=== PATIENT | female | born 1935 | race Caucasian/White ===

== ENCOUNTER 2019-09-21 07:21 | Emergency (ER) | payer MEDICARE, OTHER ==
[~2019-09-21] VITALS: Ht 152.4 cm; Wt 59.0 kg
[~2019-09-21 07:21] MED LIST: AMLO2.5T4 PO; ESCI10TA PO; LEVO125T PO; ROSU5TAB PO; VALS40TA4 PO
[2019-09-21] MEDS ORDERED: IV NS 0.9% 500 ML BAG IV ONE (07:30)
--- NOTE | 2019-09-21 07:35 | NUR ---
TOM RA 89 From Home sycopal episode "Recent increase in BP meds-had syncopal episode this am. Worse w/changing position BS 127". on room air, breathing evenly and unlabored. Connected to the monitor and pulse ox. kept comfortable, will continue to monitor accordingly.
--- NOTE | 2019-09-21 07:51 | NUR ---
CALLED CARDIO [phone]
--- NOTE | 2019-09-21 07:56 | NUR ---
SUBMITTED MOVE SHEET AND CALLED FOR TELE BED
[2019-09-21 07:58] LABS: BASOPHILS # (AUTO) 0.1 /CMM (0.0-0.2); BASOPHILS % (AUTO) 1.2 % (0.0-2.0); EOSINOPHILS % (AUTO) 0.2 % (0.0-6.0); HEMATOCRIT 36 % (33-45); HEMOGLOBIN 11.9 g/dL (11.5-14.8); LYMPHOCYTES # (AUTO) 0.9 /CMM (0.8-4.8); LYMPHOCYTES % (AUTO) 11.8 % (20.0-44.0); MEAN CORPUSCULAR HGB CONC 33 g/dl (31.0-36.0); MEAN CORPUSCULAR VOLUME 94 fL (82-100); MONOCYTES # (AUTO) 0.5 /CMM (0.1-1.30); MONOCYTES % (AUTO) 5.8 % (2.0-12.0); NEUTROPHILS # (AUTO) 6.4 /CMM (1.8-8.9); PLATELET COUNT (AUTO) 189 /CMM (150-450); WHITE BLOOD COUNT (AUTO) 7.9 K/uL (4.3-11.0)
[2019-09-21] MEDS ORDERED: LOSA25TA27 PO (08:07)
--- NOTE | 2019-09-21 08:07 | NUR ---
lorena at bedside for x-ray
[2019-09-21] MEDS ORDERED: PARO20TA7 PO (08:08)
[2019-09-21] MEDS ORDERED: FERR325T28 PO (08:08)
[2019-09-21 08:09] LABS: CALCIUM, SERUM 8.9 mg/dL (8.5-10.1); CARBON DIOXIDE 30 mmol/L (21-32); CHLORIDE 105 mmol/L (98-107); CREATININE 0.8 mg/dL (0.6-1.3); GLUCOSE 117 mg/dL (74-106); SODIUM SERUM 140 mmol/L (136-145); UREA NITROGEN, BLOOD 22 mg/dL (7-18)
[2019-09-21] MEDS ORDERED: DEXL60CA3 PO (08:12)
[2019-09-21 08:15] LABS: ALANINE AMINOTRANSFERASE 19 U/L (12-78); ALBUMIN 3.1 g/dL (3.4-5.0); ALKALINE PHOSPHATASE 79 U/L (46-116); ASPARTATE AMINOTRANSFERASE 21 U/L (15-37); BILIRUBIN,DIRECT 0.1 mg/dL (0.0-0.2); BILIRUBIN,TOTAL 0.4 mg/dL (0.2-1.0); TOTAL PROTEIN, SERUM 6.8 g/dL (6.4-8.2)
--- NOTE | 2019-09-21 08:18 | NUR ---
wheeled patient via gurney to ct
--- NOTE | 2019-09-21 08:31 | NUR ---
patient came back from ct
--- NOTE | 2019-09-21 08:35 | NUR ---
technical advisor at bedside
--- NOTE | 2019-09-21 08:40 | NUR ---
GOT BED 309-2 NELIA MCMAHAN
[2019-09-21 09:12] VITALS: BP 119/56
--- NOTE | 2019-09-21 09:13 | NUR ---
Patient discharged to home in stable condition. Written and verbal after care instructions given. Patient verbalizes understanding of instruction.IV removed. Catheter intact and site benign. Pressure and 4x4 applied to site. No bleeding noted.
== END 2019-09-21 09:13 | disposition home or self-care (01) ==
LOC: ER 07:23
DX: R55 Syncope and collapse (principal); I10 Essential (primary) hypertension; E03.9 Hypothyroidism, unspecified; Z98.890 Other specified postprocedural states; Z79.899 Other long term (current) drug therapy
CPT/HCPCS: 36415; 70450-TC; 71045-TC; 80048-TC; 80076-TC; 84443-TC; 84484-TC; 85025-TC; 93307-TC